=== PATIENT | female | born 1980 | race Caucasian/White ===

== ENCOUNTER 2022-10-07 08:13 | Outpatient (CLI) | payer OTHER, SELFPAY ==
[2022-10-07 19:15] LABS: Hematocrit 44.5 % (37.0-47.0); Hemoglobin 14.7 g/dL (12.0-15.0); Mean Corpuscular Hemoglobin 28.7 pg (26-34); Mean Corpuscular Volume 86.9 fl (80-100); Mean Platelet Volume 10.3 fl (7.4-10.4); Platelet Count Result 308 k/mm3 (150-375); Red Blood Count 5.12 M/mm3 (4.2-5.4); Red Cell Distribution Width 12.2 % (11.5-14.5); White Blood Count 7.5 K/mm3 (4.5-10.0)
[2022-10-07 20:28] LABS: Alanine Aminotransferase 47 U/L (6-35); Albumin Level 4.7 g/dL (3.5-5.1); Alkaline Phosphatase 89 U/L (38-126); Anion Gap 8 mmol/L (8-16); Aspartate Amino Transferase 30 U/L (14-36); Bilirubin,Total 0.6 mg/dL (0.2-1.3); Blood Urea Nitrogen 15 mg/dL (7-17); Calcium 9.3 mg/dL (8.4-10.2); Carbon Dioxide 29 mmol/L (22-30); Chloride 101 mmol/L (98-107); Cholesterol 213 mg/dL (0-200); Estimated Glomerular Filt Rate > 60; Glucose 109 mg/dL (65-110); HDL Direct 39 mg/dL; Potassium 4.3 mmol/L (3.4-5.0); Sodium 138 mmol/L (137-145); Triglycerides 230 mg/dL (<150)
[2022-10-07 20:39] LABS: LDL Cholesterol Direct 127 mg/dL
[2022-10-07 20:52] LABS: Vitamin D 25 Hydroxy 23.7 ng/mL
[2022-10-07 21:22] LABS: Hemoglobin A1C 5.1 % (<5.7)
== END 2022-10-07 08:14 | disposition home or self-care (01) ==
LOC: ANHGOSHLAB 08:16
PROVIDERS: PCP Family Medicine; Visit Provider Nurse Practitioner
DX: Z13.1 Encounter for screening for diabetes mellitus (principal); Z13.29 Encounter for screening for other suspected endocrine disorder; Z13.21 Encounter for screening for nutritional disorder; Z13.220 Encounter for screening for lipoid disorders; Z13.6 Encounter for screening for cardiovascular disorders
CPT/HCPCS: 36415; 80053; 80061; 82306; 83036; 84443; 85027

== ENCOUNTER 2022-11-03 14:39 | Outpatient (NON) | payer OTHER, SELFPAY ==
[2022-11-06 15:02] LABS: IFOB Positive Control Positive; Immunochemical Fecal Occult Bl Positive (N)
== END 2022-11-03 14:40 | disposition home or self-care (01) ==
LOC: ANHLAB 11-14 10:09
PROVIDERS: PCP Family Medicine; Visit Provider Family Medicine
DX: K92.1 Melena (principal)
CPT/HCPCS: 82274

== ENCOUNTER 2022-12-31 01:43 | Day surgery (SDC) | payer OTHER, SELFPAY ==
[2022-12-19 14:10] VITALS: BMI 30.7
[2022-12-31 06:28] VITALS: BP 124/80; PULSE 78; RESP 18; TEMP 35.9; O2SAT 97; BMI 32.3
[2022-12-31] MEDS: LACTATED RINGERS 1,000 ML 150 ML IV CONT ×2 (06:37→07:23)
--- NOTE | 2022-12-31 06:45 | WPDANESEPPF ---
Anes - Initial Pre Proc Eval Procedure: Operation Date: 12/31/22 07:00 Proposed Procedures p Colonoscopy - Andre Adames MD Date/Time: 12/31/22 06:45 Surgeon: Andre Adames MD Pre Op Diagnosis: melena Patient Data Age: 42 Gender: F Height: 1.68 m Weight: 90.7 kg Last Vital Signs Temp 35.9 C L 12/31/22 06:28 Pulse 78 12/31/22 06:28 Resp 18 12/31/22 06:28 BP 124/80 12/31/22 06:28 Pulse Ox 97 12/31/22 06:28 O2 Del Method Room Air 12/31/22 06:28 Allergies Allergy/AdvReac Type Severity Reaction Status Date / Time Penicillins AdvReac Unknown Verified 12/31/22 06:24 lactose intolerant AdvReac Intermediate Bloating Uncoded 12/31/22 06:24 Home Medications Medication Instructions Recorded Confirmed Type albuterol sulfate 90 mcg/actuation 2 puff inhalation Q4H PRN 05/13/22 12/31/22 Rx aerosol inhaler shortness of breath or wheezing #8.5 grams cyclobenzaprine 10 mg tablet 10 mg PO TID #60 tabs 07/01/22 12/31/22 Rx tramadol 50 mg tablet 50 mg PO DAILY PRN pain #30 tabs 07/01/22 12/31/22 Rx cyproheptadine 4 mg tablet 8 mg PO .QD #180 tabs 11/26/22 12/31/22 Rx nortriptyline 25 mg capsule 50 mg PO DAILY #180 caps 11/28/22 12/31/22 Rx metoclopramide HCl 10 mg tablet 20 mg PO DAILY 12/19/22 12/31/22 History (Reglan) ondansetron 4 mg disintegrating 4 mg PO Q4H PRN nausea and 12/30/22 12/31/22 Rx tablet vomiting #6 tabs Patient hx anesthesia problems: none Family hx anesthesia problems: none Results Review: All pre-operative results and documents have been reviewed as part of the pre-operative evaluation. [facility] Past Medical History Medical History Allergies Anxiety Asthma COVID History of lipoma removed in 2002 Lipoma of back Migraine Family History Family History Sibling Depression Thyroid disorder Grandparent Ovarian cancer Diabetes mellitus Heart disease Father Depression Mother Depression Social History Social History Smoking status: Never smoker Alcohol intake: current Drinks per week: 2 Substance use: never Substance use type: does not use Lack of Transportation: No Lack of Food: Never True Current Housing: I Have Housing Concerned About Future Housing: No Difficulty Paying Gas/Electric Bills: No Difficulty Paying for Meds: No Currently Unemployed: No Education: Master's Degree or Higher Difficulty w/ Childcare or Family Care: No Living arrangements: with family 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 Informed Consent: The patient's anesthetic plan and its attendant risks and benefits were discussed with the patient/family/POA. Questions were solicited and answers provided to the satisfaction of the patient/family/POA.
--- NOTE | 2022-12-31 06:46 | PM.HPGS ---
History of Present Illness History of Present Illness Consent: Risks, benefits, and alternatives have been discussed and questions answered. Patient agrees to proceed with procedure. Chief complaint: melena Narrative: Mellissa Aparicio is a 42 year old female For colonoscopy due to blood her stools. For couple of months she has seen red blood in her stools. She had been constipated which she thinks was due to a medication she had been taking for migraines but she had stopped that medication quite a while ago and still having some bowel issues with constipation. There is no family history of colon cancer. She has had no abdominal pain Review of Systems Review of Systems: All systems reviewed & are unremarkable except as noted in HPI and below PMFSH Past Medical History Medical History Allergies Anxiety Asthma COVID History of lipoma removed in 2002 Lipoma of back Migraine Family History Family History Sibling Depression Thyroid disorder Grandparent Ovarian cancer Diabetes mellitus Heart disease Father Depression Mother Depression Social History Social History Smoking status: Never smoker Alcohol intake: current Drinks per week: 2 Substance use: never Substance use type: does not use Lack of Transportation: No Lack of Food: Never True Current Housing: I Have Housing Concerned About Future Housing: No Difficulty Paying Gas/Electric Bills: No Difficulty Paying for Meds: No Currently Unemployed: No Education: Master's Degree or Higher Difficulty w/ Childcare or Family Care: No Living arrangements: with family 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 Gender identity (if verbalized by the patient): Female Agree to blood products: Yes Meds Home Medications and Allergies Home Medications Medication Instructions Recorded Confirmed Type albuterol sulfate 90 mcg/actuation 2 puff inhalation Q4H PRN 05/13/22 12/31/22 Rx aerosol inhaler shortness of breath or wheezing #8.5 grams cyclobenzaprine 10 mg tablet 10 mg PO TID #60 tabs 07/01/22 12/31/22 Rx tramadol 50 mg tablet 50 mg PO DAILY PRN pain #30 tabs 07/01/22 12/31/22 Rx cyproheptadine 4 mg tablet 8 mg PO .QD #180 tabs 11/26/22 12/31/22 Rx nortriptyline 25 mg capsule 50 mg PO DAILY #180 caps 11/28/22 12/31/22 Rx metoclopramide HCl 10 mg tablet 20 mg PO DAILY 12/19/22 12/31/22 History (Reglan) ondansetron 4 mg disintegrating 4 mg PO Q4H PRN nausea and 12/30/22 12/31/22 Rx tablet vomiting #6 tabs Allergies Allergy/AdvReac Type Severity Reaction Status Date / Time Penicillins AdvReac Unknown Verified 12/31/22 06:24 lactose intolerant AdvReac Intermediate Bloating Uncoded 12/31/22 06:24 Vital Signs Vital Signs - 24 hr 12/31/22 06:28 Temperature 35.9 C L Pulse Rate 78 Respiratory Rate 18 Blood Pressure 124/80 Pulse Oximetry 97 Oxygen Delivery Room Air Exam Const: General: alert Orientation/consciousness: patient oriented x3 Resp: Auscultation: clear to auscultation bilaterally Cardio: Rhythm: regular rhythm GI: GI Palp: Yes Soft to palpation and No Tenderness to palpation present (GI) Neuro: General: patient oriented x3 Assessment and Plan Assessment and plan (1) Blood in stool: Code(s): K92.1 - Melena Status: Acute Assessment and Plan: Colonoscopy with possible biopsy or polypectomy or cautery or injection of substances.
[2022-12-31 07:12] VITALS: BP 92/53; PULSE 82; RESP 20; O2SAT 96
[2022-12-31 07:22] VITALS: BP 97/68; PULSE 77; RESP 15; O2SAT 95
[2022-12-31 07:32] VITALS: BP 100/67; PULSE 73; RESP 23; O2SAT 95
== END 2022-12-31 07:45 | disposition home or self-care (01) ==
PROVIDERS: PCP Family Medicine; Visit Provider Internal Medicine Gastroenterology
PROC: 0DJD8ZZ Inspection of Lower Intestinal Tract, Via Natural or Artificial Opening Endoscopic (ICD-10-PCS; CPT 45378; principal; 2022-12-31 07:00)
DX: K92.1 Melena (principal); K64.8 Other hemorrhoids; K62.1 Rectal polyp; J45.909 Unspecified asthma, uncomplicated; F41.9 Anxiety disorder, unspecified; E66.9 Obesity, unspecified; Z68.32 Body mass index [BMI] 32.0-32.9, adult; Z79.51 Long term (current) use of inhaled steroids
CPT/HCPCS: 45380; 88305; 88342; J2704; J7120

== ENCOUNTER 2023-05-21 08:11 | Outpatient (CLI) | payer OTHER, SELFPAY ==
[2023-05-21 14:35] LABS: Alanine Aminotransferase 67 U/L (6-35); Albumin Level 4.4 g/dL (3.5-5.1); Alkaline Phosphatase 104 U/L (38-126); Anion Gap 11 mmol/L (8-16); Aspartate Amino Transferase 47 U/L (14-36); Bilirubin,Total 0.5 mg/dL (0.2-1.3); Blood Urea Nitrogen 16 mg/dL (7-17); Calcium 9.4 mg/dL (8.4-10.2); Carbon Dioxide 25 mmol/L (22-30); Chloride 104 mmol/L (98-107); Cholesterol 207 mg/dL (0-200); Estimated Glomerular Filt Rate > 60; Glucose 96 mg/dL (65-110); HDL Direct 45 mg/dL; Sodium 140 mmol/L (137-145); Triglycerides 185 mg/dL (<150)
[2023-05-21 14:55] LABS: LDL Cholesterol Direct 118 mg/dL
[2023-05-21 14:57] LABS: Vitamin D 25 Hydroxy 31.1 ng/mL
== END 2023-05-21 08:12 | disposition home or self-care (01) ==
LOC: ANHGOSHLAB 08:12
PROVIDERS: PCP Family Medicine; Visit Provider Nurse Practitioner
DX: E78.5 Hyperlipidemia, unspecified (principal); E55.9 Vitamin D deficiency, unspecified
CPT/HCPCS: 36415; 80053; 80061; 82306

== ENCOUNTER 2023-07-30 08:19 | Outpatient (CLI) | payer OTHER, SELFPAY ==
[2023-07-30 18:22] LABS: Free T4 Free Thyroxine 1.02 ng/mL (0.78-2.19)
[2023-07-30 18:58] LABS: Alanine Aminotransferase 58 U/L (6-35); Albumin Level 4.3 g/dL (3.5-5.1); Alkaline Phosphatase 94 U/L (38-126); Anion Gap 8 mmol/L (8-16); Aspartate Amino Transferase 44 U/L (14-36); Bilirubin,Total 0.5 mg/dL (0.2-1.3); Blood Urea Nitrogen 15 mg/dL (7-17); Calcium 9.7 mg/dL (8.4-10.2); Carbon Dioxide 23 mmol/L (22-30); Chloride 107 mmol/L (98-107); Cholesterol 205 mg/dL (0-200); Estimated Glomerular Filt Rate 60; Glucose 103 mg/dL (65-110); HDL Direct 47 mg/dL; Sodium 138 mmol/L (137-145); Triglycerides 135 mg/dL (<150)
[2023-07-30 19:09] LABS: LDL Cholesterol Direct 125 mg/dL
[2023-07-30 19:13] LABS: Hemoglobin A1C 5.4 % (<5.7)
[2023-08-01 06:28] LABS: Insulin Level Total 40.7 uIU/mL (<=18.4); Prolactin 63.8 ng/mL (***)
[2023-08-01 13:11] LABS: DHEA-Sulfate 323 mcg/dL (19-231)
[2023-08-02 10:46] LABS: Testosterone Total 25 ng/dL (2-45)
== END 2023-07-30 08:20 | disposition home or self-care (01) ==
LOC: ANHGOSHLAB 08:22
PROVIDERS: PCP Family Medicine; Visit Provider Nurse Practitioner
DX: N92.6 Irregular menstruation, unspecified (principal); E78.1 Pure hyperglyceridemia
CPT/HCPCS: 36415; 80053; 80061; 82627; 83036; 83498; 83525; 84146; 84403; 84439; 84443

== ENCOUNTER 2023-08-11 07:44 | Outpatient (CLI) | payer OTHER, SELFPAY ==
--- NOTE | ~2023-08-11 | US_ITS ---
Limited Abdominal Sonogram: Real-time sonographic imaging of the right upper quadrant was performed. Clinical History: Abnormal serum enzyme levels Findings: The liver appears mildly echogenic, with no evidence of mass lesion or bile duct dilatatio n. Main portal vein demonstrates normal direction of flow. The gallbladder is well distended, and con tains an echogenic, shadowing gallstone. No gallbladder wall thickening. The common bile duct measure s 4 mm. The visualized pancreas, aorta, and IVC are unremarkable. Impression: Cholelithiasis. Diffuse fatty infiltration of the liver. Reviewed, dictated and finalized at location . IFICATION ENGINEER Impression: Cholelithiasis. Diffuse fatty infiltration of the liver.
== END 2023-08-11 07:45 | disposition home or self-care (01) ==
PROVIDERS: PCP Family Medicine; Visit Provider Family Medicine
DX: K80.20 Calculus of gallbladder without cholecystitis without obstruction (principal); K76.0 Fatty (change of) liver, not elsewhere classified; R74.8 Abnormal levels of other serum enzymes
CPT/HCPCS: 76705

== ENCOUNTER 2023-09-10 14:51 | Outpatient (CLI) | payer OTHER, SELFPAY ==
--- NOTE | ~2023-09-10 | MM_ITS ---
EXAMINATION: MM screening hever BI w tila HISTORY: Screening TECHNIQUE: Craniocaudal and mediolateral oblique 3-D tomosynthesis images were obtained and synthetic 2-D images were generated. CAD analysis was submitted and interpreted. COMPARISON: No prior mammogram is available for comparison at this institution. BREAST PARENCHYMAL COMPOSITION: Not dense: There are scattered areas of fibroglandular density. FINDINGS: There is no evidence of suspicious mass, calcification, or architectural distortion to sugg est malignancy in either breast. There has been no suspicious interval change. IMPRESSION: 1. No mammographic evidence of malignancy. 2. Recommend routine screening mammography in one year. BI-RADS Category 1: Negative Reviewed, dictated and finalized at location A.
== END 2023-09-10 14:52 ==
LOC: MICIMG 14:52
PROVIDERS: PCP Nurse Practitioner; Visit Provider Nurse Practitioner
DX: Z12.31 Encounter for screening mammogram for malignant neoplasm of breast (principal)
CPT/HCPCS: 77063; 77067

== ENCOUNTER 2024-01-27 08:04 | Outpatient (CLI) | payer OTHER, SELFPAY ==
[2024-01-29 01:58] LABS: FSH 120.7 mIU/mL; LH 71.2 mIU/mL
[2024-02-04 22:23] LABS: Anti Mullerian Hormone,Female 0.01 ng/mL (0.01-2.99)
[2024-02-07 21:59] LABS: Estradiol, Ultrasensitive 6 pg/mL
== END 2024-01-27 08:05 | disposition home or self-care (01) ==
LOC: ANHGOSHLAB 08:07
PROVIDERS: PCP Nurse Practitioner
DX: E28.2 Polycystic ovarian syndrome (principal); Z13.49 Encounter for screening for other developmental delays
CPT/HCPCS: 36415; 82670; 83001; 83002

== ENCOUNTER 2024-03-01 10:42 | Outpatient (CLI) | payer OTHER, SELFPAY ==
--- NOTE | ~2024-03-01 | MR_ITS ---
EXAMINATION: MR brain/brain stem wo/w con DATE: 03/01/2024 11:28 INDICATION: Unspecified endocrine disorders. Migraine headache. Pineal cyst. TECHNIQUE: Magnetic resonance imaging (MRI) of the brain and brainstem was performed without and with 17 mL MultiHance intravenous contrast. COMPARISON: None. FINDINGS: There is no intracranial hemorrhage, acute infarction, or abnormal intracranial mass lesion . The ventricles are normal in size. The orbits are normal. The paranasal sinuses are clear. The mast oid air cells are normal. IMPRESSION: 1. Normal brain. Reviewed, dictated and finalized at location A. IMPRESSION: 1. Normal brain.
== END 2024-03-01 10:43 | disposition home or self-care (01) ==
LOC: MICIMG 10:43
PROVIDERS: PCP Nurse Practitioner; Visit Provider Neurological Surgery
DX: E34.8 Other specified endocrine disorders (principal)
CPT/HCPCS: 70553; A9577

== ENCOUNTER 2024-05-05 08:18 | Outpatient (CLI) | payer OTHER, SELFPAY ==
[2024-05-05 13:34] LABS: Alanine Aminotransferase 44 U/L (6-35); Albumin Level 4.4 g/dL (3.5-5.1); Alkaline Phosphatase 87 U/L (38-126); Anion Gap 9 mmol/L (4-12); Aspartate Amino Transferase 60 U/L (14-36); Bilirubin,Total 0.5 mg/dL (0.2-1.3); Blood Urea Nitrogen 16 mg/dL (7-17); Calcium 9.7 mg/dL (8.4-10.2); Carbon Dioxide 24 mmol/L (22-30); Chloride 106 mmol/L (98-107); Cholesterol 183 mg/dL (0-200); Estimated Glomerular Filt Rate > 60; Glucose 89 mg/dL (65-110); HDL Direct 44 mg/dL; Potassium 4.3 mmol/L (3.4-5.0); Sodium 139 mmol/L (137-145); Triglycerides 191 mg/dL (<150)
[2024-05-05 13:39] LABS: Hematocrit 43.2 % (37.0-47.0); Hemoglobin 13.7 g/dL (12.0-15.0); Mean Corpuscular HGB Conc 31.7 g/dl (32-36); Mean Corpuscular Hemoglobin 28.1 pg (26-34); Mean Corpuscular Volume 88.5 fl (80-100); Mean Platelet Volume 10.5 fl (7.4-10.4); Platelet Count Result 317 k/mm3 (150-375); Red Blood Count 4.88 M/mm3 (4.2-5.4); Red Cell Distribution Width 12.9 % (11.5-14.5); White Blood Count 7.1 K/mm3 (4.5-10.0)
[2024-05-05 13:45] LABS: LDL Cholesterol Direct 97 mg/dL
[2024-05-05 17:48] LABS: Vitamin D 25 Hydroxy 51.5 ng/mL
== END 2024-05-05 08:19 | disposition home or self-care (01) ==
LOC: ANHGOSHLAB 08:20
PROVIDERS: PCP Nurse Practitioner; Visit Provider Nurse Practitioner
DX: Z00.00 Encounter for general adult medical examination without abnormal findings (principal); E55.9 Vitamin D deficiency, unspecified
CPT/HCPCS: 36415; 80053; 80061; 82306; 84443; 85027

== ENCOUNTER 2024-08-06 08:05 | Outpatient (CLI) | payer OTHER, SELFPAY ==
--- OUTSIDE RECORDS SUMMARY | 2024-08-06 08:12 | XMS_ITS | Patient Health Record ---
Author Organization [facility] Billing Info Address [address] [place] [address] [place] [address] Care Team Providers Care Domestic Travel Consultant Name Role Phone SHERIFRAMONCAESAR MERINO DO Primary Care Provider Vandana vailable Allergies Allergen (clinical drug ingredient) Drug/Non Drug Allergy documented on EMR Reaction Allergy Type Onset Date Status Amitriptyline HCl Unknown Drug Allergy Active Depakote teratogen Drug Allergy Active Topiramate Unknown Drug Allergy Active Tramadol HCl nauseating Drug Allergy Act juan Verapamil HCl Unknown Drug Allergy Act juan Penicillin Unknown Drug Allergy Active Beta Blockers asthma Drug Allergy Act juan Reason For Referral No Information Medications Medication SIG (Take, Route, Frequency, Duration) Notes Start Date End Date Status Magnesium Oxide 400 MG bid for menses we ek to suppress migraine 08/02/2016 Active Tramadol HCl 50 MG q4-6 h prn VASQUEZ (works well) 06/20/2014 Active Albuterol Active Gabapentin 300 MG 900 mg qhs to suppre ss migraine & help sleep 02/19/2016 Active Advair HFA Active Botox 200 UNIT 31 IM INJ in the hea d and neck for Dx G43.019 Intramuscularly every three months for 30 days 02/23/2016 Active Cyproheptadine HCl 4 MG TAKE 2 TABLETS BY MOUTH EVERY NIGHT AT BEDTIME for 30 Active Social History Tobacco Use: Social History Observation Description Date Details (start date - stop date) Never Smoker NA - NA Tobacco Status: Question Answer Notes Patient is a never smoker Problems Problem Type SNOMED Code ICD Code Onset Dates Problem Status W/U Status Risk Notes Problem 08799965 Chronic sinusitis (J32.9) Active confirmed controlled! Problem 621593516 Intractable common migraine (G43.019) Active confirmed cont present regimen (avoid drastic change if she's moving out of state) x add catamenial Mg+ Problem 49790909 Adverse drug experience (T88.7XXA) Active confirmed (other prophys to try) Problem 68088793 Initial insomnia (G47.00) Active confirmed Periactin helps Problem 69675448 Clinical sinusitis (J32.9) Active confirmed some component allergies? Plan Of Treatment Pending Test Test Name Order Date CT-SCAN, HEAD/BRAIN; W/O CONTRAST MATL ( 50028) 04/20/2014 Insurance Providers Payer Name Payer Address Payer Phone Subscriber Number Group Number Insured Name Patient Relationship to Insured Coverage Start Date Coverage End Date [facility] [address] [place], [place] [id number] Mellissa Aparicio Self - patient is the insured Medications Administered Medication Instructions Date of Administration Dosage Notes BotulinumtoxinA (Botox) 03/12/2016 155 units H ead and neck BotulinumtoxinA (Botox) 06/11/2016 155 units H ead and neck Medical (General) History Medical History History ICD Code asthma Surgical History Surgery Date(Month/Year) L sciatic lipoma 2001
--- OUTSIDE RECORDS SUMMARY | 2024-08-06 08:12 | XMS_ITS | Clinical Summary ---
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 Gender Identity Not on file Sexual Orientation Not on file Plan of Treatment Health Maintenance Due Date Last Done Comments Cervical Cancer Screening Pa p Smear (Age 30 to 64) Every 3 Years 1979 Colorectal Cancer Screening Colonoscopy (10 Years) 1979 Annual Physical 1982 Hepatitis C 1997 DTaP, Tdap and Td Vaccines ( 1 - Tdap) 1998 Hepatitis B Vaccines (1 of 3 - 19+ 3-dose series) 1998 Cervical Cancer Screening Pa p with HPV Testing (Age 30 to 64) Every 5 Years 2009 Cervical Cancer Screening wi th HPV 2009 Mammogram Screening 2019 COVID-19 Vaccine (3 - 2023-2 5 season) 2024 03/29/2023, 03/10/2022 Influenza Adult (#1) 2024 03/29/2023, 03/10/2022 HPV Vaccines Aged Out No longer eligi ble based on patient's age to complete this topic Meningococcal B Vaccine Aged Out No l onger eligible based on patient's age to complete this topic Meningococcal Vaccine Aged Out No serg junie eligible based on patient's age to complete this topic Pneumococcal Vaccine: Pediatrics (0 to 5 Years) and At-Risk Patients (6 to 64 Years) Aged Out No longer eligible b ased on patient's age to complete this topic RSV Immunizations Under 20 Months Aged Out No longer eligible b ased on patient's age to complete this topic Insurance AETNA [facility] Care Teams Computer Tester Relationship Specialty Start Date End Date Helen Estevez DO [address] [place] [address] PCP - General FAMILY PRACTICE 08/18/23
[2024-08-06 17:53] LABS: Hemoglobin A1C 5.3 % (<5.7)
[2024-08-07 08:13] LABS: DHEA-Sulfate 318 mcg/dL (15-205); Prolactin 22.6 ng/mL
[2024-08-08 08:08] LABS: Insulin Level Total 28.9 uIU/mL
== END 2024-08-06 08:06 | disposition home or self-care (01) ==
LOC: ANHGOSHLAB 08:06
PROVIDERS: PCP Nurse Practitioner; Visit Provider Nurse Practitioner
DX: N92.6 Irregular menstruation, unspecified (principal); E22.1 Hyperprolactinemia
CPT/HCPCS: 36415; 82607; 82627; 83036; 83525; 84146

== ENCOUNTER 2024-08-16 08:26 | Outpatient (CLI) | payer OTHER, SELFPAY ==
--- OUTSIDE RECORDS SUMMARY | 2024-08-16 08:46 | XMS_ITS | Clinical Summary ---
Author Organization 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
--- OUTSIDE RECORDS SUMMARY | 2024-08-16 08:46 | XMS_ITS | Patient Health Record ---
Author Organization [facility] Billing Info Address [address] [place] [address] [place] [address] Care Team Providers Care Cable Splicer Apprentice Name Role Phone TANICAESAR MERINO DO Primary Care Provider Vandana vailable Allergies Allergen (clinical drug ingredient) Drug/Non Drug Allergy documented on EMR Reaction Allergy Type Onset Date Status amitriptyline Amitriptyline HCl Unknown Drug Allergy Active valproate Depakote teratogen Drug Allergy Active topiramate Topiramate Unknown Drug Allergy Activ e tramadol Tramadol HCl nauseating Drug Allergy Act juan verapamil Verapamil HCl Unknown Drug Allergy Act juan Penicillin Unknown Drug Allergy Active Beta Blockers asthma Drug Allergy Act ujan Reason For Referral No Information Medications Medication [...] Problem Status W/U Status Risk Notes Problem 10836949 Chronic sinusitis (J32.9) Active confirmed controlled! Problem 326836072 Intractable common migraine (G43.019) Active confirmed cont present regimen (avoid drastic change if she's moving out of state) x add catamenial Mg+ Problem 14277332 Adverse drug experience (T88.7XXA) Active confirmed (other prophys to try) Problem 26798185 Initial insomnia (G47.00) Active confirmed Periactin helps Problem 64315069 Clinical sinusitis (J32.9) Active confirmed some component allergies? Plan Of Treatment Pending Test Test Name Order Date CT-SCAN, HEAD/BRAIN; W/O CONTRAST MATL ( 16230) 04/20/2014 Insurance Providers Payer Name Payer Address Payer Phone Subscriber Number Group Number Insured Name Patient Relationship to Insured Coverage Start Date Coverage End Date [facility] [address] [place], [place] [id number] [phone] [id number] Mellissa Aparicio Self - patient is the insured Medications Administered Medication Instructions Date of Administration Dosage Notes BotulinumtoxinA (Botox) 03/12/2016 155 units H ead and neck BotulinumtoxinA (Botox) 06/11/2016 155 units H ead and neck Medical (General) History Medical History History ICD Code asthma Surgical History Surgery Date(Month/Year) L sciatic lipoma 2001
[2024-08-16 12:22] LABS: Alanine Aminotransferase 49 U/L (6-35); Albumin Level 4.5 g/dL (3.5-5.1); Alkaline Phosphatase 85 U/L (38-126); Anion Gap 10 mmol/L (4-12); Aspartate Amino Transferase 34 U/L (14-36); Bilirubin,Total 0.5 mg/dL (0.2-1.3); Blood Urea Nitrogen 16 mg/dL (7-17); Calcium 9.8 mg/dL (8.4-10.2); Carbon Dioxide 26 mmol/L (22-30); Chloride 103 mmol/L (98-107); Estimated Glomerular Filt Rate > 60; Glucose 84 mg/dL (65-110); Potassium 4.2 mmol/L (3.4-5.0); Sodium 139 mmol/L (137-145)
== END 2024-08-16 08:27 | disposition home or self-care (01) ==
PROVIDERS: PCP Nurse Practitioner; Visit Provider Nurse Practitioner Women's Health
DX: E28.2 Polycystic ovarian syndrome (principal)
CPT/HCPCS: 36415; 80053

== ENCOUNTER 2024-08-25 08:29 | Outpatient (CLI) | payer OTHER, SELFPAY ==
--- NOTE | ~2024-08-25 | XR_ITS ---
XR chest 2V Ordering provider: Colleen Ng MARINE DIESEL TECHNICIAN-C History: 44 years Female with . R06.00 - Dyspnea, unspecified . Comparison: None. FINDINGS: MEDIASTINUM: The cardiac silhouette is not enlarged. LUNGS: No infiltrates, effusions or pneumothorax. OTHER: No free air under the diaphragm. IMPRESSION: No acute cardiopulmonary pathology. Reviewed, dictated and finalized at location A. UTER SYSTEMS INTEGRATOR
== END 2024-08-25 08:30 | disposition home or self-care (01) ==
LOC: GOSHIMG 08:29
PROVIDERS: PCP Nurse Practitioner; Visit Provider Nurse Practitioner
DX: R06.00 Dyspnea, unspecified (principal)
CPT/HCPCS: 71046

== ENCOUNTER 2024-09-13 10:30 | Outpatient (CLI) | payer OTHER, SELFPAY ==
--- NOTE | ~2024-09-13 | MM_ITS ---
EXAMINATION: MM screening hever BI w tila HISTORY: Screening TECHNIQUE: Craniocaudal and mediolateral oblique 3-D tomosynthesis images were obtained and synthetic 2-D images were generated. CAD analysis was submitted and interpreted. COMPARISON: 09/10/2023 BREAST PARENCHYMAL COMPOSITION: There are scattered areas of fibroglandular density. FINDINGS: Stable parenchymal pattern without suspicious microcalcifications, architectural distortion, discrete masses or significant asymmetry. IMPRESSION: 1. No mammographic evidence of malignancy. 2. Recommend routine screening mammography in one year. BI-RADS Category 1: Negative Reviewed, dictated and finalized at location A.
== END 2024-09-13 10:31 | disposition home or self-care (01) ==
PROVIDERS: PCP Nurse Practitioner; Visit Provider Nurse Practitioner
DX: Z12.31 Encounter for screening mammogram for malignant neoplasm of breast (principal)
CPT/HCPCS: 77063; 77067

== ENCOUNTER 2024-10-29 08:26 | Outpatient (CLI) | payer OTHER, SELFPAY ==
--- OUTSIDE RECORDS SUMMARY | 2024-10-29 08:30 | XMS_ITS | Clinical Summary ---
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
--- OUTSIDE RECORDS SUMMARY | 2024-10-29 08:30 | XMS_ITS | Patient Health Record ---
Author Organization [facility] Billing Info Address [address] [place] [address] [place] [address] Care Team Providers Care Wellness Specialist Name Role Phone TANICAESAR MERINO DO Primary [...] Problem Status W/U Status Risk Notes Problem 02015043 Chronic sinusitis (J32.9) Active confirmed controlled! Problem 084963313 Intractable common migraine (G43.019) Active confirmed cont present regimen (avoid drastic change if she's moving out of state) x add catamenial Mg+ Problem 49945204 Adverse drug experience (T88.7XXA) Active confirmed (other prophys to try) Problem 42570736 Initial insomnia (G47.00) Active confirmed Periactin helps Problem 92959894 Clinical sinusitis (J32.9) Active confirmed some component allergies? Plan Of Treatment Pending Test Test Name Order Date CT-SCAN, HEAD/BRAIN; W/O CONTRAST MATL ( 50935) 04/20/2014 Insurance Providers Payer Name Payer Address Payer Phone Subscriber Number Group Number Insured Name Patient Relationship to Insured Coverage Start Date Coverage End Date [facility] [address] [place], [place] [id number] Mellissa Aparicio Self - patient is the insured Medications Administered Medication Instructions Date of Administration Dosage Notes BotulinumtoxinA (Botox) 03/12/2016 155 units H ead and neck BotulinumtoxinA (Botox) 06/11/2016 155 units H ead and neck Medical (General) History Medical History History ICD Code asthma Surgical History Surgery Date(Month/Year) L sciatic lipoma 2001
[2024-10-29 20:34] LABS: Alanine Aminotransferase 33 U/L (6-35); Albumin Level 4.6 g/dL (3.5-5.1); Alkaline Phosphatase 80 U/L (38-126); Anion Gap 10 mmol/L (4-12); Aspartate Amino Transferase 33 U/L (14-36); Bilirubin,Total 0.4 mg/dL (0.2-1.3); Blood Urea Nitrogen 16 mg/dL (7-17); Calcium 9.6 mg/dL (8.4-10.2); Carbon Dioxide 27 mmol/L (22-30); Chloride 104 mmol/L (98-107); Cholesterol 205 mg/dL (0-200); Estimated Glomerular Filt Rate > 60; Glucose 87 mg/dL (65-110); HDL Direct 44 mg/dL; Potassium 4.5 mmol/L (3.4-5.0); Sodium 141 mmol/L (137-145); Triglycerides 185 mg/dL (<150)
[2024-10-29 20:45] LABS: LDL Cholesterol Direct 114 mg/dL
== END 2024-10-29 08:27 | disposition home or self-care (01) ==
PROVIDERS: PCP Nurse Practitioner; Visit Provider Nurse Practitioner
DX: E28.2 Polycystic ovarian syndrome (principal); E78.5 Hyperlipidemia, unspecified
CPT/HCPCS: 36415; 80053; 80061

== ENCOUNTER 2025-01-20 08:15 | Outpatient (CLI) | payer OTHER, SELFPAY ==
--- OUTSIDE RECORDS SUMMARY | 2025-01-20 08:18 | XMS_ITS | Clinical Summary ---
Author Organization 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 Gender Identity Not on file Sexual Orientation [...] of 3 - 19+ 3-dose series) 1998 HPV Vaccines (1 - 3-dose SCD M series) 2006 Cervical Cancer Screening Pa p with HPV Testing (Age 30 to 64) Every 5 Years 2009 Cervical Cancer Screening wi th HPV 2009 Mammogram Screening 2019 COVID-19 Vaccine (3 - 2023-2 5 season) 2024 03/29/2023, 03/10/2022 Meningococcal B Vaccine Aged Out No l [...] age to complete this topic Insurance [facility]NA [facility] Care Teams Health Researcher Relationship Specialty Start Date End Date Helen Estevez DO [address] [place] [address] PCP - General FAMILY PRACTICE 08/18/23
--- OUTSIDE RECORDS SUMMARY | 2025-01-20 08:19 | XMS_ITS | Patient Health Record ---
Author Organization [facility] Billing Info Address [address] [place] [address] [place] [address] Care Team Providers Care Turret Lathe Machinist Name Role Phone TANICAESAR MERINO DO Primary [...] Problem Status W/U Status Risk Notes Problem 23042958 Chronic sinusitis (J32.9) Active confirmed controlled! Problem 086350463 Intractable common migraine (G43.019) Active confirmed cont present regimen (avoid drastic change if she's moving out of state) x add catamenial Mg+ Problem 16288611 Adverse drug experience (T88.7XXA) Active confirmed (other prophys to try) Problem 49439582 Initial insomnia (G47.00) Active confirmed Periactin helps Problem 01079756 Clinical sinusitis (J32.9) Active confirmed some component allergies? Plan Of Treatment Pending Test Test Name Order Date CT-SCAN, HEAD/BRAIN; W/O CONTRAST MATL ( 87165) 04/20/2014 Insurance Providers Payer Name Payer Address Payer Phone Subscriber Number Group Number Insured Name Patient Relationship to Insured Coverage Start Date Coverage End Date [facility] [address] [place], [place] [id number] [phone] [id number] Mellissa Aparicio Self - patient is the insured Medications Administered Medication Instructions Date of Administration Dosage Notes BotulinumtoxinA (Botox) 03/12/2016 155 units H ead and neck BotulinumtoxinA (Botox) 06/11/2016 155 units H ead and neck Medical (General) History Medical History History ICD Code asthma Surgical History Surgery Date(Month/Year) L sciatic lipoma 2001
[2025-02-02 18:15] VITALS: BMI 29.8
--- NOTE | 2025-02-02 18:15 | WPDHOMESLEEP ---
Sleep Study - Home Unattended Date of Study: 01/20/25 Ordering Provider: LUCIAN Thompson Interpreting Provider: Azalea Landry DO Home Sleep Study Type: Watch PAT Height: 1.68 m Weight: 83.915 kg Body Mass Index: 29.8 Neck Circumference (inches): 16 Gardners: 2 Reason for Sleep Study snoring Sleep History The patient is a 44-year-old female who had a sleep study ordered by the pulmonary group for evaluation of sleep apnea. The patient admits to snoring loudly. She denies having interruptions in breathing while asleep. She denies choking or gasping at night. She denies having trouble breathing on her back. She denies morning headaches. She does have a dry or sore mouth/throat in the morning. She denies nocturnal heartburn. She denies nocturia. She does have difficulty falling and staying asleep. She does have difficulty returning to sleep if she wakes up throughout the night. She does use hypnotics or sedatives. She denies feeling anxious about sleep. She denies feeling tired or sleepy during the day. She does feel tired in the morning. She denies having the urge to fall asleep during the day. She denies feeling drowsy while driving. She denies sleep paralysis, cataplexy, and hypnagogic/hypnopompic hallucinations. She does clench or grind her teeth. She denies kicking or jerking her legs excessively. She denies having a restless feeling in her legs. She goes to bed at 9:45 p.m. on workdays and at midnight on her days off. It takes her 1 hour to fall asleep. She gets 7 hours of sleep on workdays and 9 hours on her days off. Her sleep is somewhat restorative on her days off. She denies taking any planned naps. She denies dream enactment behavior. She denies sleepwalking. She consumes 1 to 2 cups of a caffeinated beverage per day. She denies tobacco use. She consumes one alcoholic beverage 1 to 2 nights per week. She denies exercising on a regular basis. [facility] Past Medical History Medical History COVID History of lipoma removed in 2002 Lipoma of back Migraine Anxiety Asthma Allergies Family History Family History Sibling Depression Thyroid disorder Grandparent Ovarian cancer Diabetes mellitus Heart disease Father Depression Mother Depression Social History Social History Smoking status: Never smoker Alcohol intake: current Drinks per week: 2 Alcohol use details: beer Substance use: never Substance use type: does not use Do You Feel Safe in your Home?: Yes Lack of Transportation: No Lack of Food: Never True Current Housing: I Have Housing Concerned About Future Housing: No Difficulty Paying Gas/Electric Bills: No Difficulty Paying for Meds: No Currently Unemployed: No Education: Master's Degree or Higher Difficulty w/ Childcare or Family Care: No Living arrangements: with family 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 Gender identity (if verbalized by the patient): Female Agree to blood products: Yes Medications Home Medications ?Medication ?Instructions ?Recorded ?Confirmed ?Type metformin 500 mg tablet,extended 500 mg PO DAILY 11/03/23 12/28/24 History release 24 hr rimegepant 75 mg disintegrating 75 mg PO ONCE PRN migraine 08/02/24 12/28/24 Rx tablet (Nurtec ODT) headache #16 tabs albuterol sulfate 90 mcg/actuation 2 puff inhalation Q4H PRN 08/24/24 12/28/24 Rx aerosol inhaler shortness of breath or wheezing #8.5 grams spironolactone 100 mg tablet 100 mg PO DAILY 08/25/24 12/28/24 History nortriptyline 25 mg capsule See Rx Instructions .Route 11/18/24 12/28/24 Rx .COMPLEX #180 caps cyproheptadine 4 mg tablet See Rx Instructions .Route 11/19/24 12/28/24 Rx .COMPLEX #180 tabs metoclopramide HCl 10 mg tablet See Rx Instructions .Route 11/19/24 12/28/24 Rx .COMPLEX #180 tabs eszopiclone 2 mg tablet (Lunesta) 2 mg PO ONCE #2 tabs 12/28/24 12/28/24 Rx Sleep Procedure The sleep study was completed using [employer]PO Medical[employer] a technically adequate device with seven channels: peripheral arterial tone, actigraphy, body position, snore, respiratory movement, pulse oximetry, sleep staging, and heart rate. Prior to using the device, the patient received verbal and written instructions for its application and was provided with the help desk phone number for additional telephonic instruction with 24-hour availability of qualified personnel to answer questions. The study was scored using CMS guidelines. Sleep Architecture The total recording time is 9 hrs, 18 min. The total sleep time is 8 hrs, 0 min. Sleep latency is 21 minutes. REM latency is 107 minutes. The patient had 12 episodes of waking. Sleep architecture shows 16.7% deep sleep, 57.1% light sleep, and (as % Total Sleep Time) showed NREM (Light 57.1%; Deep 16.7%), and a 26.2% stage REM. The patient spent 38.7% of total sleep time in the supine position. Sleep efficiency was 86.02. Respiratory Analysis The overall AHI (pAHI 4%:) is 0.3. The overall AHI (pAHI 3%:) is 3.1. The central AHI is 0.0. The AHI was 2.6 in NREM and 4.8 in REM sleep. The AHI was 5.5 in Supine and 1.6 in Non-supine sleep. Percent of Jean Marie Nelson respirations is 0.0. Oximetry Data The oxygen desaturation index (JOHANA 4%:) is 0.4. The mean saturation is 94%, and the lowest saturation is 86%. Time spent with saturation < 88% is 0.1 minutes. Snoring Profile Snoring average intensity is 42 dB. The patient snored above 45 decibels for 55.9 minutes, 11.6% of sleep time. Cardiac Profile The average pulse rate is 78 beats per minutes. The lowest pulse rate is 63 bpm. The highest pulse rate reported is 107 bpm. Atrial fibrillation was not detected. Premature beats occur <0.1 per minute. Assessment and Plan Assessment and Plan (1) Sleep disturbances: Code(s): G47.9 - Sleep disorder, unspecified Status: Acute Assessment and Plan: The patient had an overall AHI of 0.3 with desaturation down to 86%. This is not consistent with sleep-disordered breathing. If there is further concern for a sleep disorder, I recommend brian the patient have a split study with the use of a hypnotic to ensure we obtain enough sleep data. Data The data obtained during this sleep study is adequate for interpretation. Certification This sleep study has been reviewed by a board certified sleep medicine physician.
== END 2025-01-21 10:35 | disposition home or self-care (01) ==
LOC: ANHCSM 08:16
PROVIDERS: PCP Family Medicine; Visit Provider Physician Assistant
DX: G47.10 Hypersomnia, unspecified (principal); G47.9 Sleep disorder, unspecified
CPT/HCPCS: 95800

== ENCOUNTER 2025-02-16 08:02 | Outpatient (CLI) | payer OTHER, SELFPAY ==
--- OUTSIDE RECORDS SUMMARY | 2025-02-16 08:05 | XMS_ITS | Patient Health Record ---
Author Organization [facility] Billing Info Address [address] [place] [address] [place] [address] Care Team Providers Care Touch Up Painter Name Role Phone TANICAESAR MERINO DO Primary [...] Problem Status W/U Status Risk Notes Problem [id number] Chronic sinusitis (J32.9) Active confirmed controlled! Problem [id number] Intractable common migraine (G43.019) Active confirmed cont present regimen (avoid drastic change if she's moving out of state) x add catamenial Mg+ Problem 87483213 Adverse drug experience (T88.7XXA) Active confirmed (other prophys to try) Problem 22319762 Initial insomnia (G47.00) Active confirmed Periactin helps Problem 60418183 Clinical sinusitis (J32.9) Active confirmed some component allergies? Plan Of Treatment Pending Test Test Name Order Date CT-SCAN, HEAD/BRAIN; W/O CONTRAST MATL ( 55981) 04/20/2014 Insurance Providers Payer Name Payer Address Payer Phone Subscriber Number Group Number Insured Name Patient Relationship to Insured Coverage Start Date Coverage End Date [facility] [address] [place], [place] [id number] Mellissa Aparicio Self - patient is the insured Medications Administered Medication Instructions Date of Administration Dosage Notes BotulinumtoxinA (Botox) 03/12/2016 155 units H ead and neck BotulinumtoxinA (Botox) 06/11/2016 155 units H ead and neck Medical (General) History Medical History History ICD Code asthma Surgical History Surgery Date(Month/Year) L sciatic lipoma 2001
[2025-02-16 14:18] LABS: Hematocrit 44.4 % (37.0-47.0); Hemoglobin 14.0 g/dL (12.0-15.0); Mean Corpuscular HGB Conc 31.5 g/dl (32-36); Mean Corpuscular Hemoglobin 27.8 pg (26-34); Mean Corpuscular Volume 88.3 fl (80-100); Platelet Count Result 332 k/mm3 (150-375); Red Blood Count 5.03 M/mm3 (4.2-5.4); White Blood Count 6.1 K/mm3 (4.5-10.0)
[2025-02-16 15:52] LABS: Alanine Aminotransferase 33 U/L (6-35); Albumin Level 4.7 g/dL (3.5-5.1); Alkaline Phosphatase 76 U/L (38-126); Anion Gap 10 mmol/L (4-12); Aspartate Amino Transferase 34 U/L (14-36); Bilirubin,Total 0.4 mg/dL (0.2-1.3); Blood Urea Nitrogen 18 mg/dL (7-17); Calcium 10.0 mg/dL (8.4-10.2); Carbon Dioxide 25 mmol/L (22-30); Chloride 103 mmol/L (98-107); Cholesterol 190 mg/dL (0-200); Estimated Glomerular Filt Rate 59; Glucose 79 mg/dL (65-110); HDL Direct 47 mg/dL; Potassium 4.4 mmol/L (3.4-5.0); Sodium 138 mmol/L (137-145); Total Protein 7.6 g/dL (6.3-8.2); Triglycerides 153 mg/dL (<150)
[2025-02-16 16:27] LABS: Thyroid Stimulating Hormone 3.220 uIU/mL (0.465-4.680)
== END 2025-02-16 08:03 | disposition home or self-care (01) ==
LOC: ANHGOSHLAB 08:03
PROVIDERS: PCP Family Medicine; Visit Provider Nurse Practitioner
DX: Z00.00 Encounter for general adult medical examination without abnormal findings (principal); E55.9 Vitamin D deficiency, unspecified
CPT/HCPCS: 36415; 80053; 80061; 82306; 84443; 85027

== ENCOUNTER 2025-03-25 08:14 | Outpatient (CLI) | payer OTHER, SELFPAY ==
--- OUTSIDE RECORDS SUMMARY | 2025-03-25 08:19 | XMS_ITS | Patient Health Record ---
Author Organization [facility] Billing Info Address [address] [place] [address] [place] [address] Care Team Providers Care Intensive Care Unit Nurse Name Role Phone TANICAESAR MERINO DO Primary [...] Problem Status W/U Status Risk Notes Problem [id number] Chronic sinusitis (J32.9) Active confirmed controlled! Problem 863415269 Intractable common migraine (G43.019) Active confirmed cont present regimen (avoid drastic change if she's moving out of state) x add catamenial Mg+ Problem 42793396 Adverse drug experience (T88.7XXA) Active confirmed (other prophys to try) Problem 34810287 Initial insomnia (G47.00) Active confirmed Periactin helps Problem 31654540 Clinical sinusitis (J32.9) Active confirmed some component allergies? Plan Of Treatment Pending Test Test Name Order Date CT-SCAN, HEAD/BRAIN; W/O CONTRAST MATL ( [id number]) 04/20/2014 Insurance Providers Payer Name Payer Address Payer Phone Subscriber Number Group Number Insured Name Patient Relationship to Insured Coverage Start Date Coverage End Date [facility] [address] [place], [place] [id number] Mellissa Aparicio Self - patient is the insured Medications Administered Medication Instructions Date of Administration Dosage Notes BotulinumtoxinA (Botox) 03/12/2016 155 units H ead and neck BotulinumtoxinA (Botox) 06/11/2016 155 units H ead and neck Medical (General) History Medical History History ICD Code asthma Surgical History Surgery Date(Month/Year) L sciatic lipoma 2001
[2025-03-25 14:01] LABS: Alanine Aminotransferase 37 U/L (6-35); Albumin Level 4.4 g/dL (3.5-5.1); Alkaline Phosphatase 92 U/L (38-126); Anion Gap 9 mmol/L (4-12); Aspartate Amino Transferase 50 U/L (14-36); Bilirubin,Total 0.3 mg/dL (0.2-1.3); Blood Urea Nitrogen 19 mg/dL (7-17); Calcium 9.8 mg/dL (8.4-10.2); Carbon Dioxide 25 mmol/L (22-30); Chloride 104 mmol/L (98-107); Estimated Glomerular Filt Rate > 60; Glucose 85 mg/dL (65-110); Potassium 4.9 mmol/L (3.4-5.0); Sodium 138 mmol/L (137-145); Total Protein 7.2 g/dL (6.3-8.2)
== END 2025-03-25 08:15 | disposition home or self-care (01) ==
LOC: ANHGOSHLAB 08:15
PROVIDERS: PCP Family Medicine; Visit Provider Obstetrics & Gynecology Gynecology
DX: L68.0 Hirsutism (principal)
CPT/HCPCS: 36415; 80053

== ENCOUNTER 2025-04-12 09:10 | Outpatient (CLI) | payer OTHER, SELFPAY ==
--- OUTSIDE RECORDS SUMMARY | 2025-04-12 10:17 | XMS_ITS | Clinical Summary ---
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 Gender Identity Not on file Sexual Orientation [...] Mammogram Screening 2019 COVID-19 Vaccine (3 - 2024-2 6 season) 2025 03/29/2023, 03/10/2022 Influenza Adult (#1) 2025 03/29/2023, 03/10/2022 HPV Vaccines Aged Out No longer eligi ble based on patient's age to complete this topic Hepatitis A Vaccines Aged Out No long er eligible based on patient's age to complete [...] age to complete this topic Insurance [employer] [facility] Care Teams Equipment Maintenance Technician Relationship Specialty Start Date End Date Helen Estevez DO [address] [place] [address] PCP - General FAMILY PRACTICE 08/18/23
--- OUTSIDE RECORDS SUMMARY | 2025-04-12 10:17 | XMS_ITS | Patient Health Record ---
Author Organization [facility] Billing Info Address [address] [place] [address] [place] [address] Care Team Providers Care Licensed Customs Broker Name Role Phone TANICAESAR MERINO DO Primary [...] Problem Status W/U Status Risk Notes Problem [id number] Chronic sinusitis (J32.9) Active confirmed controlled! Problem 840650159 Intractable common migraine (G43.019) Active confirmed cont present regimen (avoid drastic change if she's moving out of state) x add catamenial Mg+ Problem 38576111 Adverse drug experience (T88.7XXA) Active confirmed (other prophys to try) Problem 72377072 Initial insomnia (G47.00) Active confirmed Periactin helps Problem 45638718 Clinical sinusitis (J32.9) Active confirmed some component allergies? Plan Of Treatment Pending Test Test Name Order Date CT-SCAN, HEAD/BRAIN; W/O CONTRAST MATL ( [id number]) 04/20/2014 Insurance Providers Payer Name Payer Address Payer Phone Subscriber Number Group Number Insured Name Patient Relationship to Insured Coverage Start Date Coverage End Date [facility] [address] [place], [place] [id number] Mellissa Aparicio Self - patient is the insured Medications Administered Medication Instructions Date of Administration Dosage Notes BotulinumtoxinA (Botox) 03/12/2016 155 units H ead and neck BotulinumtoxinA (Botox) 06/11/2016 155 units H ead and neck Medical (General) History Medical History History ICD Code asthma Surgical History Surgery Date(Month/Year) L sciatic lipoma 2001
--- NOTE | 2025-05-02 10:35 | WPDSLEEPSTUD ---
Sleep Study Date of Study: 04/12/25 Ordering Provider: LUCIAN Thompson Interpreting Physician: Alicia Mauricio MD Sleep Study Type: Polysomnogram Height: 1.57 m Weight: 85.275 kg Body Mass Index: 34.4 Neck Circumference (inches): 16 [place]: 1 Reason for Sleep Study Loud snoring for 5 years * 01/10/2025 home sleep test with [employer] wiht AHI 0.3, lowest saturation 86% Sleep History This sleep history is from her HST 01/20/25; The patient is a 44-year-old female who had a sleep study ordered by the pulmonary group for evaluation of sleep apnea. The patient admits to snoring loudly. She denies having interruptions in breathing while asleep. She denies choking or gasping at night. She denies having trouble breathing on her back. She denies morning headaches. She does have a dry or sore mouth/throat in the morning. She denies nocturnal heartburn. She denies nocturia. She does have difficulty falling and staying asleep. She does have difficulty returning to sleep if she wakes up throughout the night. She does use hypnotics or sedatives. She denies feeling anxious about sleep. She denies feeling tired or sleepy during the day. She does feel tired in the morning. She denies having the urge to fall asleep during the day. She denies feeling drowsy while driving. She denies sleep paralysis, cataplexy, and hypnagogic/hypnopompic hallucinations. She does clench or grind her teeth. She denies kicking or jerking her legs excessively. She denies having a restless feeling in her legs. She goes to bed at 9:45 p.m. on workdays and at midnight on her days off. It takes her 1 hour to fall asleep. She gets 7 hours of sleep on workdays and 9 hours on her days off. Her sleep is somewhat restorative on her days off. She denies taking any planned naps. She denies dream enactment behavior. She denies sleepwalking. She consumes 1 to 2 cups of a caffeinated beverage per day. She denies tobacco use. She consumes one alcoholic beverage 1 to 2 nights per week. She denies exercising on a regular basis. PMFSH Past Medical History Medical History COVID History of lipoma removed in 2002 Lipoma of back Migraine Anxiety Asthma Allergies Family History Family History Sibling Depression Thyroid disorder Grandparent Ovarian cancer Diabetes mellitus Heart disease Father Depression Mother Depression Social History Social History Smoking status: Never smoker Alcohol intake: current Drinks per week: 2 Alcohol use details: beer Substance use: never Substance use type: does not use Do You Feel Safe in your Home?: Yes Lack of Transportation: No Lack of Food: Never True Current Housing: I Have Housing Concerned About Future Housing: No Difficulty Paying Gas/Electric Bills: No Difficulty Paying for Meds: No Currently Unemployed: No Education: Master's Degree or Higher Difficulty w/ Childcare or Family Care: No Living arrangements: with family 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 Gender identity (if verbalized by the patient): Female Agree to blood products: Yes Medications Home Medications ?Medication ?Instructions ?Recorded ?Confirmed ?Type metformin 500 mg tablet,extended 500 mg PO DAILY 11/03/23 05/12/25 History release 24 hr albuterol sulfate 90 mcg/actuation 2 puff inhalation Q4H PRN 08/24/24 05/12/25 Rx aerosol inhaler shortness of breath or wheezing #8.5 grams spironolactone 100 mg tablet 100 mg PO DAILY 08/25/24 05/12/25 History nortriptyline 25 mg capsule See Rx Instructions .Route 11/18/24 05/12/25 Rx .COMPLEX #180 caps cyproheptadine 4 mg tablet See Rx Instructions .Route 11/19/24 05/12/25 Rx .COMPLEX #180 tabs metoclopramide HCl 10 mg tablet See Rx Instructions .Route 11/19/24 05/12/25 Rx .COMPLEX #180 tabs eszopiclone 2 mg tablet (Lunesta) 2 mg PO ONCE #1 tablet 02/10/25 05/12/25 Rx rimegepant 75 mg disintegrating 75 mg PO ONCE PRN migraine 04/26/25 05/12/25 Rx tablet (Nurtec ODT) headache #16 tabs Sleep Procedure A full night polysomnogram using the Nexgate multi-channel system recorded the standard physiologic parameters including EEG, EOG, submentalis EMG, anterior tibialis EMG, EKG, body position, nasal and oral airflow using nasal pressure sensor and thermistor. Respiratory parameters of chest and abdominal movements were recorded with Respiratory Inductance Plethysmography belts. Oxygen saturation was recorded by pulse oximetry. Video monitoring was also performed. Sleep stages, periodic limb movements, and EEG arousals were scored in 30 second epochs according to the criteria of the AASM Scoring Manual. The Apnea-Hypopnea Index was calculated using [facility] guidelines for definition of hypopnea while scoring respiratory events. Sleep Architecture The total recording time was 450.4 minutes. The total sleep time was 432.0 minutes. Sleep latency was 5.0 minutes. REM latency was 240.5 minutes. Sleep efficiency was 95.9%. The patient had 15 awakenings for an awakening index of 2.1. Wake after sleep onset time was 13.5 minutes. The patient spent 30.5 minutes, 7.1% of total sleep time in Stage N1. The patient spent 316.5 minutes, 73.3% in Stage N2. The patient spent 54.0 minutes, 12.5% in Stage N3. The patient spent 31.0 minutes, 7.2% in Stage REM sleep. Respiratory Analysis The patient had 3 hypopneas, no obstructive apneas, no mixed apneas, and no central apneas for an overall Apnea Hypopnea Index of 0.4. The REM Apnea Hypopnea Index was 5.8. The NREM Apnea Hypopnea Index was 0.4. The patient had a Central Apnea Hypopnea Index of 0. There were no Respiratory Effort Related Arousals. The Respiratory Disturbance Index is 0.8 events per hour. There was no evidence of Jean Marie-Nelson Respirations. Arousals There were 108 total arousals for an arousal index of 15.0. There were 73 spontaneous arousals for an index of 10.1. There were no arousals due to respiratory events.. There were 17 arousals due to periodic limb movements for an index of 2.4. There were 17 arousals due to isolated limb movements for an index of 2.4. Periodic Limb Movements The patient had 32 isolated limb movements with an index of 4.4. The patient had 134 periodic limb movements with an index of 18.6. Patient had a total of 166 limb movements with a total limb movement index of 23.1. Oximetry Data The patient had an average oxygen saturation of 94.3% in sleep with a minimum oxygen saturation of 92% and a maximum oxygen saturation of 98%. The patient had 3 oxygen desaturations that were 4% or greater resulting in an Oxygen Desaturation Index of 0.4. The patient spent no time with an oxygen saturation below 88%. Snoring Profile Snoring was mild. Cardiac Profile The EKG showed normal sinus rhythm, average pulse rate of 82 bpm with a minimum pulse of rate of 72 bpm and a maximum pulse rate of 102 bpm. No arrhythmias noted. EEG Profile Unremarkable, no evidence of seizures. Assessment and Plan Assessment and Plan (1) PLMD (periodic limb movement disorder): Code(s): G47.61 - Periodic limb movement disorder Status: Acute Assessment and Plan: This basic nocturnal polysomnogram Apr 12, 2025 does not show sleep disordered breathing. The AHI is 0.4. She had 134 periodic limb movements with an index of 18.6. She did not have excessive arousals due to leg movements however reports getting enough sleep at night and has fatigue in the day. This finding on her polysomnogram is abnormal enough to explain her daytime symptoms. Ferritin level is indicated to exclude iron deficiency anemia as a contributing factor. Ferritin should be 75 ng/mL or greater. If ferritin is below this, iron supplementation should be given to achieve ferritin of 75 ng/mL. There are nonpharmacologic methods to treat limb movements including daily exercise, stretching calf muscles before bed, avoiding excessive amounts of caffeine and alcohol, vitamin B supplementation, magnesium lotion massaged into legs before bed, and use of a weighted blanket. Pharmacologic therapy is very effective for restless legs syndrome and limb movements during sleep and may include [id number] voltage-gated calcium channel ligands such as gabapentin which is preferable to dopaminergic agents which can have augmentation. Other treatments can include opioids and benzodiazepines. Data The data obtained during this sleep study is adequate for interpretation. Certification This sleep study has been reviewed by a board certified sleep medicine physician.
== END 2025-04-13 06:58 | disposition home or self-care (01) ==
PROVIDERS: PCP Family Medicine; Visit Provider Physician Assistant
DX: G47.10 Hypersomnia, unspecified (principal); R06.83 Snoring
CPT/HCPCS: 95810

== ENCOUNTER 2025-04-13 10:50 | Outpatient (CLI) | payer OTHER, SELFPAY ==
--- OUTSIDE RECORDS SUMMARY | 2025-04-13 13:39 | XMS_ITS | Clinical Summary ---
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
--- OUTSIDE RECORDS SUMMARY | 2025-04-13 13:39 | XMS_ITS | Patient Health Record ---
Author Organization [facility] Billing Info Address [address] [place] [address] [place] [address] Care Team Providers Care Electronic Commerce Specialist Name Role Phone TANICAESAR MERINO DO [...] Problem Status W/U Status Risk Notes Problem 12467764 Chronic sinusitis (J32.9) Active confirmed controlled! Problem 343143879 Intractable common migraine (G43.019) Active confirmed cont present regimen (avoid drastic change if she's moving out of state) x add catamenial Mg+ Problem 17980391 Adverse drug experience (T88.7XXA) Active confirmed (other prophys to try) Problem 17660585 Initial insomnia (G47.00) Active confirmed Periactin helps Problem 95107231 Clinical sinusitis (J32.9) Active confirmed some component allergies? Plan Of Treatment Pending Test Test Name Order Date CT-SCAN, HEAD/BRAIN; W/O CONTRAST MATL ( [id number]) 04/20/2014 Insurance Providers Payer Name Payer Address Payer Phone Subscriber Number Group Number Insured Name Patient Relationship to Insured Coverage Start Date Coverage End Date [facility] [address] [place], [place] [id number] Mellissa Aparicio Self - patient is the insured Medications Administered Medication Instructions Date of Administration Dosage Notes BotulinumtoxinA (Botox) 03/12/2016 155 units H ead and neck BotulinumtoxinA (Botox) 06/11/2016 155 units H ead and neck Medical (General) History Medical History History ICD Code asthma Surgical History Surgery Date(Month/Year) L sciatic lipoma 2001
--- OUTSIDE RECORDS SUMMARY | 2025-04-13 13:39 | XMS_ITS | Data Portability ---
Author Organization [place] [facility], Administrative Department Address [address] [facility] [address] [place] [address] Care Team Providers Care Block Layer Name Role Phone RIP BARTH Referring Provider Assessment Encounter Date Assessment Date Assessment LastModified by Organization Details LastModified Time 10/25/2021 10/25/2021 IUD removed without difficulty. IUD was replaced today. Precautions reviewed including possible cramping and anticipated bleeding profile. Patient informed that return to fertility is immediate with IUD removal, protection is immediate with IUD replacement. If IUD replaced recommend IUD check in 4-6 weeks to ensure no displacement. Not available 10/25/2021 11:51:21 Plan of Treatment Reminders Order Date Submit Date Provider Last Modified By Organization Details Last Modified Time Details Appointments None record ed. Lab None record ed. Referral None record ed. Procedures None record ed. Surgeries None record ed. Imaging None record ed. Medication Orders None record ed. Patient TargetsNo targets recorded. Patient InstructionsNo instructions recorded. Reason for Referral None Reported. Procedures Surgical History Date Name Laterality Status Provider Name and Address Organization Details Recorded Time 2 IUD Removal completed Yelena Nevarez DO [address] [facility] [address], [place], [address], [facility] 10/25/2021 12:12:30 2 completed Bijal Vee [facility] 10/25/2021 11:46:23 2 completed [facility]21 11:46:23 1 Date of Last Pap Smear completed Bijal Vee [facility] 10/25/2021 11:46:23 excision of lipoma completed Bijal Vee [facility] 10/25/2021 11:51:07 Imaging Results None recorded. Procedure Notes None recorded. Medical Equipment None Reported. Allergies Allergen ID Allergen Name Allergen Category Reaction Reaction Severity Criticality Documentation Date Start Date Code Code System Note Provider Name and Address Organization Details Recorded Time 277075 house dust allergeni c extract environme nt,medica tion Not available Not available Not available 10/25/2021 65058 9 [facility] 11:46:22 467813 cat dander environme nt Not available Not available Not available 10/25/2021 [facility] 11:46:22 697615 Canis lupus familiari s extract environme nt Not available Not available Not available 10/25/2021 89921 4 [facility] 11:46:22 024417 mold extract environme nt Not available Not available Not available 10/25/2021 62142 8 [facility] 11:46:22 744960 Penicilli n Not available Not available Not available Not available 10/25/20211983 10356 [facility] 11:46:22 219747 lactose food,medi cation Not available Not available Not available 10/25/2021 6211 [facility] 11:46:22 Medications Name Sig Start Date Stop Date Status Note LastModified by Organization Details LastModified Time tramadol 50 mg tablet TAKE ONE TABLET BY MOUTH EVERY 12 HOURS NEEDED FOR PAIN active Not Available Not Available No t Available nortriptyli ne 25 mg capsule TAKE 2 CAPSULES BY MOUTH AT BEDTIME active Not Available Not Available No t Available cyproheptad ine 4 mg tablet TAKE 1 TABLET BY MOUTH TWICE A DAY FOR 30 DAYS active Not Available Not Available No t Available albuterol sulfate HFA 90 mcg/actuati on aerosol inhaler TAKE 2 PUFFS BY MOUTH DAILY NEEDED active Not Available Not Available No t Available fluoxetine 20 mg capsule TAKE 1 CAPSULE BY MOUTH EVERY DAY active Not Available Not Available No t Available metoclopram kevon 10 mg tablet TAKE 1 TO 2 TABLETS BY MOUTH EVERY DAY active Not Available Not Available No t Available topiramate 50 mg tablet TAKE 1 TABLET BY MOUTH AT BEDTIME active Not Available Not Available No t Available albuterol active Not Available Not Effie ilable Not Available metoclopram kevon HCl 10/25 completed Not Available Not Available Not Available nortriptyli ne 10/25 completed Not Available Not Available Not Available cyproheptad ine active Not Available Not Available Not Available topiramate 10/25 completed Not Available Not Available Not Available Aimovig Autoinjecto r 140 mg/mL subcutaneou s auto-inject or 140 mL every month by sub-q route. active Not Available Not Available No t Available Vitals Date Recorded Body height Body mass index (BMI) Body weight Heart rate Systolic And Diastolic Provider Name and Address Organization Details Last Updated DateTime 10/25/2021 167.64 cm 31.6 kg/m2 56124.1 g 86 /min 109/77 mm[Hg] Bijal Vee [facility] 10/25/2021 11:51:42 Social History Question Answer Notes LastModified by Organizat ion Details LastModified Time Tobacco Smoking Status Never Smoker Bijal Mariusz [facility] 10/25/2021 11:46:25 Do You Have An Advance Directive? No [email or web address] Information n ot available 10/25/2021 How Many Years Have You Consumed Alcohol? 21 [email or web address] Information not available 10/25/2021 Are You Blind Or Do You Have Difficulty Seeing? No [email or web address] Information n ot available 10/25/2021 Is Blood Transfusion Acceptable In An Emergency? Yes ebelqlwa110 Information not available 10/25/2021 What Is Your Level Of Caffeine Consumption? Moderate fcyrwjnq235 Information not available 10/25/2021 How Much Tobacco Do You Chew? None [email or web address] Information not available 10/25/2021 In The 14 Days Before Symptom Onset, Have You Had Close Contact With A Laboratory-confirm ed COVID-19 While That Case Was Ill? No [email or web address] Information n ot available 10/25/2021 In The 14 Days Before Symptom Onset, Have You Had Close Contact With A Person Who Is Under Investigation For COVID-19 While That Person Was Ill? No [email or web address] Information not available 10/25/2021 Have You Been To An Area Known To Be High Risk For COVID-19? No [email or web address] Information not available 10/25/2021 Are You Deaf Or Do You Have Serious Difficulty Hearing? No lbaltwkn557 Information not available 10/25/2021 What Type Of Diet Are You Following? REGULAR gyfkmqqs330 Information n ot available 10/25/2021 Do You Have A Directive To Physicians? No [email or web address] Information not available 10/25/2021 Which Illicit Or Recreational Drugs Have You Used? N/a [email or web address] Information not available 10/25/2021 Have You Directly Handled Bats, Rodents, Or Primates From Ebola Endemic Areas? No [id number] Information not available 10/25/2021 Have You Processed Blood Or Body Fluids From An Ebola Virus Disease Patient Without Appropriate PPE? No neyoyqsh347 Information not available 10/25/2021 Have You Had Household Contact With An Ebola Virus Disease Patient? No pkenufvz151 Information not available 10/25/2021 Have You Had Direct Contact With A Body In An Ebola-affected Area Without Appropriate PPE? No ptbemzum774 Information not available 10/25/2021 Have You Had Percutaneous (e.g. Needle Stick) Or Mucous Membrane Exposure To Blood Or Body Fluids From An Ebola Virus Disease Patient? No Information not available 10/25/2021 Have You Had Other Close Contact With An Ebola Virus Disease Patient In Health Care Facilities Or Community Settings? No qhtbtvyd363 Information not available 10/25/2021 Have You Had Contact With Blood, Bodily Fluids, Or Human Remains Of A Patient Known To Have Or Suspected To Have Ebola Virus Disease? No hhxngbwa842 Information not available 10/25/2021 Do You Reside In Or Have You Traveled To An Area Where Ebola Virus Transmission Is Active? No nvydrcya545 Information not available 10/25/2021 What Is The Highest Grade Or Level Of School You Have Completed Or The Highest Degree You Have Received? OK77027-6 dsegdvsb732 Information not available 10/25/2021 How Many Days Of Moderate To Strenuous Exercise, Like A Brisk Walk, Did You Do In The Last 7 Days? 2 oztielzw724 Information not available 10/25/2021 On Those Days That You Engage In Moderate To Strenuous Exercise, How Many Minutes, On Average, Do You Exercise? 30 rjafeyph539 Information not available 10/25/2021 How Many Times Per Week Do You Exercise? 1-2 Times Per Week Information not available 10/25/2021 Are You Following A Fluid Restriction Diet? No togmdvsk355 Information no t available 10/25/2021 Are There Any Guns Present In Your Home? No jrnhquvr353 Information not available 10/25/2021 Which Of Your Hands Is Dominant? Left xeklklmk416 Information n ot available 10/25/2021 Have You Had Sexual Relations With Anyone Who Has Been Positively Diagnosed With Zika Virus Within The Last 6 Months? No yllikraq038 Information n ot available 10/25/2021 Have You Recently Or Are You Planning To Travel To An Area With Zika Virus? No bjogalfr534 Information not available 10/25/2021 How Many Years Have You Used Illicit Or Recreational Drugs? 0 gqbwowyq379 Information not available 10/25/2021 Are You Following A Low Salt Diet? No wsggbquo335 Information not available 10/25/2021 Do You Have A Medical Power Of Relay Telegrapher? No uqqeueua696 Information not available 10/25/2021 How Many Children Do You Have? 0 ettlvxtd420 Information not available 10/25/2021 Do You Have An Out Of Hospital DNR? No gphidfjp738 Information not available 10/25/2021 What Is Your Parents' Marital Status? okvnsbve203 Information not available 10/25/2021 Have You Ever Been Counseled For Unhealthy Alcohol Use? No zhqlmcag455 Information not available 10/25/2021 Do You Use Protection During Sex? No Information not available 10/25/2021 Do You Use Protection Against STDs? No ysyywdha229 Information not available 10/25/2021 What Is Your Relationship Status? ymkphcxz759 Information not available 10/25/2021 Do You Use Your Seat Belt Or Car Seat Routinely? Yes entwttwp830 Information not available 10/25/2021 Are You Sexually Active? Yes kjazqulz939 Information not available 10/25/2021 How Much Tobacco Do You Smoke? No bucynzcq011 Information not available 10/25/2021 What Types Of Sporting Activities Do You Participate In? N/a [email or web address] Information not available 10/25/2021 Has Tobacco Cessation Counseling Been Provided? No tazmqmyi459 Information not available 10/25/2021 How Many Years Have You Smoked Tobacco? 0 qdcyhtkk291 Information not available 10/25/2021 Have You Recently Traveled Abroad? No aoekljfa960 Information not available 10/25/2021 Have You Used IV Drugs? No divxjxtp209 Information not available 10/25/2021 Do You Have Difficulty Walking Or Climbing Stairs? No obrbxkpa036 Information not available 10/25/2021 Do You Have Symptoms Associated With Zika Virus (fever, Rash, Joint Pain, Or Conjunctivitis)? No dwgrtwyz493 Information not available 10/25/2021 Do You Have Any Dietary Restrictions? Yes bizwfkes369 Information not available 10/25/2021 How Many Days In The Past Year Have You Consumed 4 Or More Drinks? 0 wbdfggiy705 Information not available 10/25/2021 How Many Days In The Past Year Have You Consumed 5 Or More Drinks? 0 artqkejg340 Information not available 10/25/2021 How Many Years Have You Used E-cigarettes Or Vape? 0 jocmkuoh161 Information not available 10/25/2021 How Many Years Have You Used Smokeless Tobacco? 0 Information n ot available 10/25/2021 Which Type Of Protection Is Used? N/a cdintnub597 Information not available 10/25/2021 Sex: Female Functional Status Question Answer Note LastModified by Organizat ion Details LastModified Time How many times per week do you consume alcohol? 1-2 times per week nykveggv560 Information not available 10/25/2021 Do you use any illicit or recreational drugs? No xitqvbxy489 Information not available 10/25/2021 Do you or have you ever used any other forms of tobacco or nicotine? No qnahkbhm844 Information not available 10/25/2021 What is your level of alcohol consumption? Occasional icjslyra845 Information not available 10/25/2021 Do you or have you ever used smokeless tobacco? Never used smokeless tobacco mtkhirvd158 Information not available 10/25/2021 Do you have transportation difficulties? No bmabmihv901 Information not available 10/25/2021 Are you able to walk independently without assistance or assistive devices? YESWOREST yjnwncnx415 Information not available 10/25/2021 Do you have difficulty doing errands alone? No Information not available 10/25/2021 Are you able to care for yourself independently? Yes moabwajj002 Information not available 10/25/2021 Do you have difficulty dressing, bathing, grooming, or toileting? No zpmlxpor668 Information not available 10/25/2021 Do you or have you ever used e-cigarettes or vape? Never used electronic cigarettes kfrdoznp915 Information not available 10/25/2021 What is your exercise level? Occasional wooeemkk437 Information not available 10/25/2021 Mental Status Question Answer Note LastModified by Organizat ion Details LastModified Time Do you feel stressed (tense, restless, nervous, or anxious, or unable to sleep at night)? KR08028-2 eczlaufp145 Information not available 10/25/2021 Do you have difficulty concentrating, remembering or making decisions? No cedwitld363 Information no t available 10/25/2021 Family History Relationship Description Onset Age of this Age Resolved Age Notes LastModified by Organization Details LastModified Time Paternal Grandfather Heart disease [email or web address] Not available 10/2021 11:46:22 Maternal Grandmother Chronic obstructive pulmonary disease rwzwiufz527 Not available 10/2021 11:46:22 Mother Substance abuse [email or web address] Not available 10/2021 11:46:22 Mother Depressive disorder [email or web address] Not available 10/2021 11:46:22 Father Substance abuse uswxmwoa840 Not available 10/2021 11:46:22 Paternal Grandmother Arthritis xemlodgl270 Not available 10/25/2021 11:46:22 Paternal Grandmother Diabetes mellitus bsjuzupj925 Not available 10/2021 11:46:22 Paternal Grandmother Obesity chxgrbco289 Not available 11:46:22 Sister Depressive disorder ohsjjhlv780 Not available 10/2021 11:46:22 Medical History Condition Response Depression Y Asthma Y Gynecological History Statement/Question Response Abnormal Pap N 10/16/2021 Light N Post Menopausal Bleeding N N HPV Vaccine N Duration of Flow (days) 0 10/16/2021 Current Control Method IUD Age at Menarche 10 Frequency of Cycle (Q days) 0 Sexually Active? Y IUD N Date of Last Pap Smear 10/10/2020 Sexual Problems? N Seeking Unknown N Obstetrics History GPAL:G 0 P 0 0 0 0 Past Encounters Encounter ID Performer Location Encounter Start Date Encounter Closed Date Diagnosis/Indication Diagnosis SNOMED-CT Code Diagnosis ICD10 Code Diagnosis IMO Codes Diagnosis Note [id number] Yelena Nevarez DO [facility] [address] [address] 10/25/2021 11:43:41 10/25/2021 12:08:51 Contraception care [id number] Z30.40 mirena removeddes ires - dw pt to speak to pcp first about migraine meds. rec pnv with folic acid and BBT/OPK kitsama - dw pt risks of ptl gdm preeclamps ia iugrmigrai han - pt on aimovig - likely ok but cannot r/o risk, cyprohepta dine likely ok, topiramate - risk of oral cleft and low weight, fluoxetine ok zoloft could be better, nortriptyl ine - possible ris [place]of [place], [facility] risk of addiction in fetus if no in 6 mo fu with conception s - info given Health Concerns Section Related Observation LastModified by Organization Detai ls LastModified Time None Recorded Concern Status LastModified by Organization Details LastModified Time None Recorded Advance Directives Directive N: Payers Insurance Date Sequence Insurance Name Policy Number Policy Casiano Covered Member ID Casiano Member ID Guarantor Name 10/30/2021 1 [facility] [id number] 1 Mellissa Aparicio [id number] Mellissa Aparicio Notes Date Note Type Note Provider Name and Address Organization Details Recorded Time 10/25/2021 text/html Patient presents for removal of IUD. She currently has a Mirena IUD; it has been in place 6 years. She desires removal due to desire to get partner has never fathered children.ama - dw pt risks of ptl gdm preeclampsia iugrmigraines - pt on aimovig - likely ok but cannot r/o risk, cyproheptadine likely ok, topiramate - risk of oral cleft and low weight, fluoxetine ok zoloft could be better, nortriptyline - possible ris kof teratogenecity, ultram risk of addiction in fetus Yelena Nevarez DO [address] [address], [place], [address], [place] [facility] 10/25/2021 12:13:20 OBGyn Episode No OBEpisode recorded.
[2025-04-13 15:54] LABS: Alanine Aminotransferase 40 U/L (6-35); Albumin Level 4.6 g/dL (3.5-5.1); Alkaline Phosphatase 90 U/L (38-126); Anion Gap 12 mmol/L (4-12); Aspartate Amino Transferase 39 U/L (14-36); Bilirubin,Total 0.4 mg/dL (0.2-1.3); Blood Urea Nitrogen 16 mg/dL (7-17); Calcium 9.5 mg/dL (8.4-10.2); Carbon Dioxide 23 mmol/L (22-30); Chloride 104 mmol/L (98-107); Estimated Glomerular Filt Rate 54; Glucose 100 mg/dL (65-110); Potassium 4.4 mmol/L (3.4-5.0); Sodium 139 mmol/L (137-145); Total Protein 7.5 g/dL (6.3-8.2)
== END 2025-04-13 10:51 | disposition home or self-care (01) ==
LOC: ANHGOSHLAB 10:51
PROVIDERS: PCP Family Medicine; Visit Provider Nurse Practitioner Family
DX: R74.8 Abnormal levels of other serum enzymes (principal)
CPT/HCPCS: 36415; 80053

== ENCOUNTER 2025-05-09 08:15 | Outpatient (CLI) | payer OTHER, SELFPAY ==
--- NOTE | ~2025-05-09 | XR_ITS ---
EXAMINATION: XR hip RT 2V w AP pelvis DATE: 05/09/2025 08:34 INDICATION: 45 year-old with right hip pain. No mention of trauma. TECHNIQUE: Pelvis AP view and 3 views of right hip x-ray were obtained. COMPARISON: None. FINDINGS: No acute or focal bone changes of the pelvis are seen. Right hip joint space is normal. Left hip and sacroiliac joints are normal. IUD in place. Soft tissues are unremarkable. IMPRESSION: 1. No acute or focal plain radiographic abnormalities of pelvis and right hip. Other findings as mentioned above Reviewed, dictated and finalized at location [facility]. [employer]
== END 2025-05-09 08:16 | disposition home or self-care (01) ==
LOC: GOSHIMG 08:15
PROVIDERS: PCP Nurse Practitioner Family; Visit Provider Nurse Practitioner Family
DX: M25.551 Pain in right hip (principal); Z97.5 Presence of (intrauterine) contraceptive device
CPT/HCPCS: 73502